=== PATIENT | female | born 1955 | race Caucasian/White ===

== ENCOUNTER 2023-09-18 14:07 | Outpatient (CLI) | payer MEDICARE | END 2023-09-18 14:08 | disposition home or self-care (01) | LOC: DI.S 14:07 | PROVIDERS: ATTEND Nurse Practitioner Acute Care | DX: Z53.9 Procedure and treatment not carried out, unspecified reason (principal) ==

== ENCOUNTER 2024-04-26 08:00 | Outpatient (CLI) | payer MEDICARE | END 2024-04-26 23:59 | disposition home or self-care (01) | LOC: LAB.S 08:00 | PROVIDERS: ATTEND Physician Assistant Medical | DX: N39.0 Urinary tract infection, site not specified (principal) | CPT/HCPCS: 87086; 87181 ==